=== PATIENT | female | born 1990 | race Caucasian/White ===

== ENCOUNTER 2025-09-20 22:24 | Emergency (ER) | payer OTHER, SELFPAY ==
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
[2025-09-20 22:30] VITALS: BP 177/109
[2025-09-20] MEDS: TYLENOL 650 MG PO (22:41)
[2025-09-20] MEDS: ATIVAN 1 MG PO (22:42)
[2025-09-21 02:22] VITALS: BP 148/98
[2025-09-21 02:36] LABS: Hematocrit 32.9 % (37.0-47.0); Hemoglobin 10.8 g/dL (12.0-16.0); Mean Corp Hgb Conc. 32.8 g/dL (33.0-37.0); Mean Corpuscular Volume 78.3 fL (81.0-99.0); Nucleated Red Blood Cells % 0 %; Platelet Count 389 10^3/uL (130-400); Red Cell Dist. Width 14.6 % (11.5-14.5)
[2025-09-21 02:57] LABS: Acetaminophen < 10 ug/ml (10-30); Blood Urea Nitrogen 13 mg/dl (7-17); Calcium 9.3 mg/dl (8.4-10.2); Carbon Dioxide 24 mmol/L (22-30); Chloride 105 mmol/L (98-107); Glucose 97 mg/dl (70-99); Potassium 3.7 mmol/L (3.5-5.1); Salicylate < 1.0 mg/dl (2.0-20.0); Sodium 136 mmol/L (135-145); eGFR > 60.00
[2025-09-21 03:50] LABS: HCG, Serum Qualitative Screen Negative
== END 2025-09-21 05:40 ==
LOC: EMR 22:24
PROVIDERS: EMERGENCY PHYSICIAN Emergency Medicine
DX: F31.2 Bipolar disorder, current episode manic severe with psychotic features (principal); F43.10 Post-traumatic stress disorder, unspecified; F90.9 Attention-deficit hyperactivity disorder, unspecified type; F12.90 Cannabis use, unspecified, uncomplicated; F17.200 Nicotine dependence, unspecified, uncomplicated; G47.00 Insomnia, unspecified; Z56.0 Unemployment, unspecified; Z88.0 Allergy status to penicillin
CPT/HCPCS: 99285; 80048; 80143; 80179; 82077; 84703; 85025; 93005